=== PATIENT | female | born 1950 | race Caucasian/White ===

== ENCOUNTER 2023-07-11 08:29 | Day surgery (SDC) | payer MEDICARE, OTHER ==
[~2023-07-11] VITALS: Ht 152.4 cm; Wt 53.6 kg
[~2023-07-11 08:29] MED LIST: ACET325 PO; METO50ER PO; Ramipril10 MG PO
[2023-07-11 11:01] VITALS: BP 109/74
== END 2023-07-11 11:02 | disposition home or self-care (01) ==
LOC: ORSCSDS 08:29
PROVIDERS: Internal Medicine Gastroenterology
PROC: 0DBH8ZX Excision of Cecum, Via Natural or Artificial Opening Endoscopic, Diagnostic (ICD-10-PCS; principal; 2023-07-11 09:45)
DX: Z12.11 Encounter for screening for malignant neoplasm of colon (principal); Z86.010 Personal history of colon polyps; D12.0 Benign neoplasm of cecum; K57.30 Diverticulosis of large intestine without perforation or abscess without bleeding; K64.8 Other hemorrhoids; Z79.899 Other long term (current) drug therapy
CPT/HCPCS: 88305; A9270; J2704; J7120